=== PATIENT | female | born 1940 | race Caucasian/White ===

== ENCOUNTER 2017-03-21 19:18 | Emergency (ER) | payer OTHER ==
[2017-03-21 19:28] VITALS: RESP 18
--- NOTE | 2017-03-21 19:31 | EDPHY ---
H & P Stated Complaint: cough HPI/ROS: CHIEF COMPLAINT: Cough HISTORY OF PRESENT ILLNESS: This patient is a 77-year-old female with history of bronchiectasis who presents to the Emergency Department complaining of an acute exacerbation of her chronic cough beginning one week prior to arrival when in [place]. She has been suffering from intermittent coughing since for which she is followed by her PCP, Dr. Samuel. She reports taking four total courses of antibiotics for this; most recently, she took a partial course of amoxicillin and a complete course of azithromycin without improvement in her cough. She has been using cough medicine with codeine and Tessalon Pearles to control her cough with mild improvement. She also reports associated bilateral rib pain, mild dyspnea, and intermittent subjective fever. Denies any additional complaints. Medical history also includes atrial fibrillation. REVIEW OF SYSTEMS: A ten point review of systems was performed and is negative with the exception of the items mentioned in the HPI. - Personal History Current Tetanus/Diphtheria Vaccine: Yes Current Tetanus Diphtheria and Acellular Pertussis (TDAP): Yes - Medical/Surgical History PMH: 1. Bronchiectasis 2. Atrial fibrillation 3. Hyperlipidemia 4. Hypertension 5. Hypothyroid Hx Asthma: No Hx Chronic Respiratory Disease: Yes Hx Diabetes: No Hx Cardiac Disease: Yes Hx Renal Disease: No Hx Cirrhosis: No Hx Alcoholism: No Hx HIV/AIDS: No Hx Splenectomy or Spleen Trauma: No Other PMH: HTN, hypothyroid, afib, hyperlipidemia - Social History Smoking Status: Never smoked Additional Social History: Just returned from [place] today. Daughter at bedside. She is retired. - Physical Exam Exam: General Appearance: Alert. Vital signs reviewed. BP 159/84. Oxygen saturation 93% on room air. Frequent cough. Eyes: Pupils equal and round, no conjunctival injection, no discharge. Anicteric. ENT, Mouth: Mucous membranes are moist, no oropharyngeal erythema or edema. Neck: No lymphadenopathy, supple. Trachea midline. Respiratory: Lungs are clear to auscultation but breath sounds are somewhat distant; no wheezes, rales, or rhonchi. Cardiovascular: Regular rate and rhythm; no murmur, rub, or gallop. Gastrointestinal: Abdomen is soft and nontender, no masses or organomegaly, bowel sounds normal. Skin: Warm and dry, no rashes on exposed skin, normal color. Back: Nontender to palpation over the thoracolumbar spine. No CVAT. Extremities: No lower extremity edema, no calf tenderness or swelling. Neurological: Alert and oriented. Moving all four extremities easily and equally. Psychiatric: Normal affect. Constitutional: Initial Vital Signs Temperature (C) 36.7 C 03/21/17 19:25 Heart Rate 63 03/21/17 19:25 Respiratory Rate 18 03/21/17 19:25 Blood Pressure 159/84 H 03/21/17 19:25 O2 Sat (%) 93 03/21/17 19:25 O2 Delivery Mode Room Air O2 (L/minute) 2 Allergies/Adverse Reactions: codeine [Codeine] Allergy (Mild, Verified 03/21/17 19:24) Tingling of mouth/throat Home Medications: Medication Instructions Recorded Lipitor Dose k 05/02/12 Metoprolol Dose Unk 05/02/12 Synthroid Dose Unk 05/02/12 Vitamins Dose k 05/02/12 Albuterol [Proventil Inhaler HFA 1 - 2 puffs IH Q4 #1 mdi 03/21/17 (*)] Benzonatate [Tessalon Pearles (RX)] 100 mg PO TID PRN #30 cap 03/21/17 Hydrochlorothiazide 03/21/17 Medical Decision Making - Diagnostics Imaging Results: Two-view chest x-ray reviewed by me in PACs. No acute process, no infiltrate. ED Course/Re-evaluation: 77-year-old with history of intermittent cough secondary to bronchiectasis presents with worsening cough over the past week; no improvement with antibiotic use. At time of presentation, she is resting comfortably. Lung sounds are difficulty to hear as the patient is unable to inhale sufficiently without coughing. Will proceed with x-ray of the chest. 3ml IH DuoNeb administered. Chest x-ray reviewed by me is unchanged from previous, negative for pneumonia. 2049: On reevaluation, the patient reports no significant subjective improvement to her cough following the breathing treatment. It remains difficult to auscultate her lungs because of her frequent cough. I discussed x- ray results with the patient. The patient has been intermittently hypoxemic down to 87-90% on RA while in the ED. She states that this is a chronic condition for her and declines admission. She does not wish to proceed with any additional workup at this time. She will be discharged home. I discussed strict return precautions with her to which she expresses agreement. She will be given an albuterol inhaler to use as needed. She has just completed a course of antibiotics and I do not feel that an additional antibiotic at this point in time will improve the situation. She has had some success with the Tessalon Perles and would like to continue with them. She has cough syrup with codeine at home and has had good results with this in the past. She was here concerned about pneumonia and is comfortable returning home since I do not see an infiltrate on her chest x-ray. I do not suspect PE. I believe that this is an acute on chronic process related to her bronchiectasis. Differential Diagnosis: Considered a differential diagnosis of shortness of breath/cough including but not limited to pulmonary infectious process, bronchiectasis exacerbation, bronchitis, COPD, asthma, pulmonary embolus and congestive heart failure. - Data Points Medications Given: Discontinued Medications Albuterol Sulfate (Proventil Inh Prepack) 1 mdi TAKEHOME EDNOW ONE Stop: 03/21/17 21:12 Last Admin: 03/21/17 21:28 Dose: 1 mdi Albuterol/Ipratropium (Duoneb) 3 ml IH EDNOW ONE Stop: 03/21/17 19:48 Last Admin: 03/21/17 19:52 Dose: 3 ml Departure - Departure Disposition: Home, Routine, Self-Care Clinical Impression: Chronic cough Condition: Good Instructions: Albuterol (By breathing), Chronic Cough (ED) Additional Instructions: 1. Follow-up with Dr. Samuel early next week for further evaluation and treatment of your chronic cough. 2. Use the albuterol inhaler as directed, as needed for cough. Continue to use Tessalon Pearles as directed for cough. 3. Return to the Emergency Department with worsening shortness of breath, high fever, or for other serious concerns. Referrals: Teresa Samuel MD [Primary Care Provider] - As per Instructions Prescriptions: Albuterol [Proventil Inhaler HFA (*)] 1 - 2 puffs IH Q4 #1 mdi Benzonatate [Tessalon Pearles (RX)] 100 mg PO TID PRN #30 cap PRN Reason: Cough, Moderate Report Scribed for: Pearl Kauffman Report Scribed by: Fidelina Schuler Physician Review and Approval Statement: 03/21/17 19:30 Portions of this note were transcribed by the medical scientific liaison. I, Dr. Pearl Kauffman, personally performed the history, physical exam, and medical decision- making; and confirmed the accuracy of the information in the transcribed note.
[2017-03-21] MEDS ORDERED: IPRATROPIUM/ALBUTEROL 3 ML DEYVIAL IH ONE (19:47)
[2017-03-21] MEDS ORDERED: ALBUTEROL INH PREPACK MDI TAKEHOME ONE (21:11)
[2017-03-21 21:30] VITALS: BP 155/86; PULSE 64; TEMP 98.6; O2SAT 93
== END 2017-03-21 21:30 | disposition home or self-care (01) ==
DX: R05 Cough (principal); I10 Essential (primary) hypertension